=== PATIENT | female | born 1975 | race Caucasian/White ===

== ENCOUNTER 2018-08-09 19:36 | Emergency (ER) | payer MEDICAID ==
[~2018-08-09] VITALS: Ht 152.4 cm; Wt 59.4 kg
[2018-08-09 19:52] VITALS: Ht 152.4 cm; Wt 59.4 kg
[2018-08-09 20:40] LABS: BASOPHIL % 0.3 % (0-2); PLATELET COUNT 314 x10^3mcL (130-400)
[2018-08-09 20:53] LABS: CALCIUM 8.3 mg/dL (8.5-10.1); CARBON DIOXIDE 28.8 mmol/L (21-32); CHLORIDE SERUM 103 mmol/L (98-107); CREATININE SERUM 0.5 mg/dL (0.6-1.0); GFR1 > 60 mL/min; GLUCOSE SERUM 112 mg/dL (74-106); POTASSIUM SERUM 3.6 mmol/L (3.5-5.1); SODIUM SERUM 140 mmol/L (136-145)
[2018-08-09 20:58] LABS: ALBUMIN 3.8 g/dL (3.4-5.0); ALKALINE PHOSPHATASE 57 U/L (46-116); ALT/SGPT 29 U/L (14-59); AST/SGOT 15 U/L (15-37); BILIRUBIN TOTAL 0.2 mg/dL (0.20-1.00); LIPASE 86 IU/L (73-393); TOTAL PROTEIN, SERUM 7.7 g/dL (6.4-8.2)
[2018-08-09 21:59] VITALS: BP 126/76
== END 2018-08-09 21:59 | disposition home or self-care (01) ==
LOC: ED 19:36
PROVIDERS: Emergency Medicine
DX: K29.70 Gastritis, unspecified, without bleeding (principal)
CPT/HCPCS: 36415; J1885; Q0092